=== PATIENT | female | born 1975 | race Caucasian/White ===

== ENCOUNTER 2017-07-27 12:22 | Emergency (ER) | payer MEDICAID ==
[~2017-07-27] VITALS: Ht 162.6 cm; Wt 80.0 kg
[~2017-07-27 12:22] MED LIST: NO MEDS.
[2017-07-27] MEDS ORDERED: LISI-186 PO (12:30)
[2017-07-27] MEDS ORDERED: IBUPROFEN 400MG TABLET PO ONE (19:15)
[2017-07-27] MEDS ORDERED: ACETAMINOPHEN 325MG TABLET PO ONE (19:15)
[2017-07-27 20:27] VITALS: BP 128/61
== END 2017-07-27 20:48 | disposition home or self-care (01) ==
LOC: ER 12:32
DX: M25.562 Pain in left knee (principal); I10 Essential (primary) hypertension
CPT/HCPCS: 73562; 99284; L1830

== ENCOUNTER 2023-02-19 11:07 | Emergency (ER) | payer MEDICAID ==
[~2023-02-19] VITALS: Ht 157.5 cm; Wt 137.0 kg
[~2023-02-19 11:07] MED LIST changes: +LISI-186 PO; -NO MEDS.
[2023-02-19 13:00] VITALS: BP 114/59
[2023-02-19 13:03] LABS: HEMATOCRIT. 32.1 % (36.0-48.0); HEMOGLOBIN. 10.1 g/dL (12.0-16.0); LYMPHOCYTES % 36.5 % (20.0-50.0); MEAN CORPUSCULAR HEMOGLOBIN 20.3 pg (28.0-32.0); MEAN CORPUSCULAR VOLUME 64.7 fL (81.0-99.0); MEAN PLATELET VOLUME 7.4 fl (7.4-10.4); MONOCYTES % 5.8 % (2.0-8.0); NEUTROPHILS % 50.7 % (40.0-76.0); PLATELET 391 x1000/uL (130-400); RED BLOOD CELL COUNT 4.96 mill/uL (4.2-5.4)
[2023-02-19 13:11] LABS: CHLORIDE 107 mEq/L (98-107)
[2023-02-19 13:49] LABS: HCG SCREEN NEGATIVE
[2023-02-19 14:12] LABS: CLARITY URINE CLEAR (CLEAR); COLOR URINE YELLOW (YELLOW); KETONES URINE NEGATIVE (NEGATIVE); LEUKOCYTE ESTERASE URINE NEGATIVE (NEGATIVE); NITRITE URINE NEGATIVE (NEGATIVE); OCCULT BLOOD URINE NEGATIVE (NEGATIVE); PROTEIN URINE NEGATIVE (NEGATIVE); SPECIFIC GRAVITY URINE 1.012 (1.005-1.030); UROBILINOGEN URINE 0.2 E.U./dL (0.2-1.0)
[2023-02-19 14:15] LABS: PLATELET ESTIMATE NORMAL
[2023-02-19] MEDS ORDERED: IOHEXOL-350 100 ML BOTTLE ONE (15:01)
== END 2023-02-19 15:16 | disposition home or self-care (01) ==
LOC: ER 11:07
DX: N28.1 Cyst of kidney, acquired (principal); R07.9 Chest pain, unspecified; M79.604 Pain in right leg; I10 Essential (primary) hypertension
CPT/HCPCS: 36415; 71045; 71275; 80053; 81003; 83880; 84484; 84703; 85025; 93005; 93970; 99285; Q9967